=== PATIENT | female | born 1985 ===

== ENCOUNTER 2020-06-22 08:13 | Emergency (ER) | payer OTHER ==
[2020-06-22 08:28] VITALS: BP 100/67
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
[2020-06-22] MEDS ORDERED: traMADol 50 MG TAB PO ONE (10:43)
[2020-06-22 12:14] LABS: Blood Urea Nitrogen 12 mg/dL (7-17); Calcium 9.2 mg/dL (8.4-10.2); Hemolysis Index 7
[2020-06-22 12:18] LABS: BUN/Creatinine Ratio 30
[2020-06-22 12:58] LABS: HCG Qualitative,Urine Negative (Negative)
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
== END 2020-06-22 14:56 | disposition home or self-care (01) ==
LOC: ED 08:13
DX: S16.1XXA Strain of muscle, fascia and tendon at neck level, initial encounter (principal); S20.219A Contusion of unspecified front wall of thorax, initial encounter; M54.2 Cervicalgia; M54.6 Pain in thoracic spine; Z79.899 Other long term (current) drug therapy; V49.49XA Driver injured in collision with other motor vehicles in traffic accident, initial encounter; Y92.410 Unspecified street and highway as the place of occurrence of the external cause; Y93.89 Activity, other specified; Y99.8 Other external cause status
CPT/HCPCS: 36415; 71275; 72070; 72100; 72125; 80048; 81025; 99285; Q9967